=== PATIENT | female | born 1965 | race Caucasian/White ===

== ENCOUNTER 2019-06-17 13:29 | Emergency (ER) | payer BC ==
--- NOTE | 2019-06-17 15:10 | ER Document Report ---
ED Medical Screen (RME) - General Stated Complaint: FALL/BACK PAIN Time Seen by Provider: 06/17/19 15:07 Mode of Arrival: Ambulatory Information source: Patient Notes: 53-year-old female presents to ED for complaint of neck and pelvic pain after she fell Friday. She states she does have a mesh in her pelvic area and she has burning in the pelvic area. She states there is no burning with urination but there is burning when she has a bowel movement or when she lifts her leg. It is inside not in the vagina. She states it is lower back pain. Patient states she is not she her has had a vasectomy she is on control. I have greeted and performed a rapid initial assessment of this patient. A comprehensive ED assessment and evaluation of the patient, analysis of test results and completion of medical decision making process will be conducted by an additional ED providers.
[2019-06-17 16:07] LABS: APPEARANCE,URINE CLEAR; BILIRUBIN,URINE NEGATIVE (NEGATIVE); COLOR,URINE YELLOW; GLUCOSE, URINE NEGATIVE (NEGATIVE); KETONES,URINE NEGATIVE (NEGATIVE); PROTEIN,URINE NEGATIVE (NEGATIVE); URINE SPECIFIC GRAVITY 1.023; UROBILINOGEN,URINE NEGATIVE mg/dL (<2.0)
--- NOTE | 2019-06-17 17:27 | RADIOLOGY REPORT (SQ) ---
EXAM DESCRIPTION: PELVIS AP COMPLETED DATE/TIME: 06/17/2019 3:50 pm REASON FOR STUDY: Pain with movement or BM. Bladder COMPARISON: None. NUMBER OF VIEWS: One view TECHNIQUE: AP Pelvis LIMITATIONS: None. FINDINGS: MINERALIZATION: Normal. HIPS: No acute fracture or dislocation. No osseous lesions. PELVIS AND SACRUM: No acute fracture. PUBIS AND ISCHIUM: The ilioischial and iliopectineal lines are intact. There is no diastasis of the pubic symphysis. LOWER LUMBAR SPINE: No abnormality P SOFT TISSUES: No findings. OTHER: No other finding. IMPRESSION: No osseous abnormality of the pelvis. COMMENT: Pelvic fractures are often occult on plain radiographs. If strong clinical suspicion for f racture, recommend CT or MR. TECHNICAL DOCUMENTATION: JOB ID: [id number] [employer]- All Rights Reserved Reading location - IP/workstation name: [email or web address]
--- NOTE | 2019-06-17 17:46 | RADIOLOGY REPORT (SQ) ---
EXAM DESCRIPTION: U/S NON-OB PELVIS LTD W/O DOP COMPLETED DATE/TIME: 06/17/2019 5:36 pm REASON FOR STUDY: Pain with movement or BM. bladdermesh COMPARISON: None. TECHNIQUE: Pre and post void bladder imaging. LIMITATIONS: None. FINDINGS: The urinary bladder is incompletely distended but appears within normal limits. Bilateral ureteral jets are demonstrated. OTHER: No other significant finding. IMPRESSION: 1. Examination is limited as above. The urinary bladder is unremarkable in appearance on this study. TECHNICAL DOCUMENTATION: JOB ID: [id number] [employer]- All Rights Reserved Reading location - IP/workstation name: [email or web address]
--- NOTE | 2019-06-17 17:49 | RADIOLOGY REPORT (SQ) ---
EXAM DESCRIPTION: U/S NON-OB PELVIS TV W/O DOP COMPLETED DATE/TIME: 06/17/2019 5:36 pm REASON FOR STUDY: PELVIC/BLADDER PAIN COMPARISON: None. TECHNIQUE: Dynamic and static grayscale images acquired of the pelvis via transvaginal approach and recorded on PACS. Additional selected color Doppler and spectral images recorded. LIMITATIONS: None. FINDINGS: UTERUS: Uterus is retroverted. Contour normal. No mass. ENDOMETRIAL STRIPE: The endometrial stripe was difficult to identify sonographically. CERVIX: No nabothian cysts. RIGHT OVARY AND DOPPLER: Normal size. No worrisome masses. Normal arterial vascular flow without evid ence for torsion. LEFT OVARY AND DOPPLER: Not visualized sonographically due to overlying bowel gas. FREE FLUID: None noted. OTHER: No other significant finding. MEASUREMENTS: UTERUS: 5.9 x 3.0 x 4.8 cm. ENDOMETRIAL STRIPE: Not visualized. RIGHT OVARY: 2.1 x 1.4 x 1.0 cm LEFT OVARY: Not visualized. IMPRESSION: 1. The uterus is retroverted. 2. The endometrial stripe is difficult to identified sonographically. Correlation suggested. 3. The left ovary is not visualized due to overlying bowel gas. TECHNICAL DOCUMENTATION: JOB ID: [id number] [employer]- All Rights Reserved Rev-01/09 Reading location - IP/workstation name: [email or web address]
[2019-06-17] MEDS ORDERED: TRAMADOL HCL 50 MG TABLET PO ONE (20:28)
[2019-06-17] MEDS ORDERED: CYCLOBENZAPRINE HCL 10 MG TABLET PO ONE (20:28)
--- NOTE | 2019-06-17 20:37 | ER Document Report ---
ED General - General Chief Complaint: Back Pain Stated Complaint: FALL/BACK PAIN Time Seen by Provider: 06/17/19 15:07 Primary Care Provider: SERGO MARTIN MD [Primary Care Provider] - Follow up as needed Mode of Arrival: Ambulatory Notes: Patient is a 53-year-old female that comes to the emergency department for chief complaint of a fall injury. She states that on Friday she accidentally missed a step and fell out of her camper about 3-1/2 feet, she landed mainly on her right buttock/hip, the area became very bruised, she states that she occasionally will feel a sharp shooting pain in her buttock, hip, lower back, and almost into the pelvis. She states she became concerned because she still has pain several days later although pain is intermittent. She denies dizziness, vomiting, dysuria, bloody urine, vaginal bleeding, bloody stools. She states she is concerned because she has a bladder mesh and she was worried she tore it and she is bleeding internally. She is not on a blood thinner. She denies any other complaints. TRAVEL OUTSIDE OF THE [place] IN LAST 30 DAYS: No Past Medical History - General Information source: Patient - Social History Smoking Status: Never Smoker Chew tobacco use (# tins/day): No Frequency of alcohol use: Occasional Drug Abuse: None Lives with: Family Family History: Reviewed & Not Pertinent Patient has suicidal ideation: No Patient has homicidal ideation: No - Immunizations Immunizations up to date: Yes Hx Diphtheria, Pertussis, Tetanus Vaccination: Yes Review of Systems - Review of Systems Constitutional: No symptoms reported EENT: No symptoms reported Cardiovascular: No symptoms reported Respiratory: No symptoms reported Gastrointestinal: See HPI Genitourinary: See HPI Female Genitourinary: See HPI Musculoskeletal: See HPI Skin: No symptoms reported Hematologic/Lymphatic: No symptoms reported Neurological/Psychological: No symptoms reported Physical Exam - Vital signs Vitals: Temp Pulse Resp BP Pulse Ox 97.9 F 88 16 122/79 98 06/17/19 15:14 06/17/19 15:14 06/17/19 15:14 06/17/19 15:14 06/17/19 15:14 - Notes Notes: GENERAL: Alert, interacts well. No acute distress. Patient walks slightly gingerly but is not in severe distress. HEAD: Normocephalic, atraumatic. EYES: Pupils equal, round, and reactive to light. Extraocular movements intact. ENT: Oral mucosa moist, tongue midline. Oropharynx unremarkable. Airway patent. Nares patent, no nasal septal hematoma, TM's intact. NECK: Full range of motion. Supple. Trachea midline. LUNGS: Clear to auscultation bilaterally, no wheezes, rales, or rhonchi. No r espiratory distress. HEART: Regular rate and rhythm. No murmur ABDOMEN: Soft, non-tender. Non-distended. Bowel sounds present in all 4 quadrants. GENITOURINARY: Deferred EXTREMITIES: Moves all 4 extremities spontaneously. No edema, normal radial and dorsalis pedis pulses bilaterally. No cyanosis. BACK: Obvious contusion to the right buttock area. No erythema, severe tenderness, or open skin noted. No cervical, thoracic, lumbar midline tenderness. No saddle anesthesia, normal distal neurovascular exam. Moves all extremities in full range of motion. NEUROLOGICAL: Alert and oriented x3. Normal speech. Cranial nerves II through XII grossly intact. PSYCH: Normal affect, normal mood. SKIN: Warm, dry, normal turgor. No rashes or lesions noted. Course - Re-evaluation Re-evalutation: Patient has a benign abdomen. She has pain with movement, she has obvious contusion to the right buttocks area and some generalized pain over the hip, however her exam is completely normal otherwise. She denies vaginal bleeding, dizziness, vomiting, and her vital signs are unremarkable. She is quite well- appearing on exam. I did review work-up from triage including x-ray and ultrasound and these show no acute findings including no fracture, accumulating hematoma, or free air. I discussed all results with patient, patient is very satisfied with this, she requests Ultram and Flexeril on discharge. She is reportedly been on both of these with good results in the past, she states that she cannot take any other pain medication and she is already on Celebrex. She was provided with this because of her history of taking these together well in the past. Discussed follow-up and return precautions. Patient states understanding and agreement. Stable at time of discharge. - Vital Signs Vital signs: Temp Pulse Resp BP Pulse Ox 97.9 F 82 16 117/63 100 06/17/19 19:22 06/17/19 20:58 06/17/19 20:58 06/17/19 20:58 06/17/19 20:58 - Laboratory Laboratory results interpreted by me: 06/17/19 15:40 Urine Blood MODERATE H Discharge - Discharge Clinical Impression: Pelvic pain, Contusion of skin Fall Qualifiers: Encounter type: initial encounter Qualified Code(s): W19.XXXA - Unspecified fall, initial encounter Lower back pain Qualifiers: Chronicity: acute Back pain laterality: bilateral Sciatica presence: without sciatica Qualified Code(s): M54.5 - Low back pain Condition: Stable Disposition: HOME, SELF-CARE Additional Instructions: Your evaluation shows soft tissue injury, probable muscle strain, no obvious fracture or abnormality is seen otherwise. Symptoms should gradually resolve, and recommend heat to your lower back, continue anti-inflammatories, take the muscle relaxer and pain medication if needed as directed. Follow-up with primary care. Return if you worsen including developing numbness, inability to control your bladder or bowels, severe worsening pain, or any other concerning or worsening symptoms. Prescriptions: Cyclobenzaprine HCl [Flexeril 5 mg Tablet] 1 - 2 tab PO TID PRN #15 tablet PRN Reason: Tramadol HCl/Acetaminophen [Ultracet 37.5 mg/325 mg Tablet] 1 each PO ASDIR PRN #15 tablet PRN Reason: Referrals: SERGO MARTIN MD [Primary Care Provider] - Follow up as needed
[2019-06-17 20:59] VITALS: BP 117/63
== END 2019-06-17 21:00 | disposition home or self-care (01) ==
LOC: ER 13:29
DX: S30.0XXA Contusion of lower back and pelvis, initial encounter (principal); M54.5 Low back pain; R10.2 Pelvic and perineal pain; M25.559 Pain in unspecified hip; W10.8XXA Fall (on) (from) other stairs and steps, initial encounter; Z79.1 Long term (current) use of non-steroidal anti-inflammatories (NSAID)
CPT/HCPCS: 72170; 76830; 76857; 81001